=== PATIENT | female | born 1985 | race American Indian/Alaskan Native ===

== ENCOUNTER 2016-11-04 19:30 | Observation (INO) | payer SELFPAY ==
[2016-11-04 19:31] VITALS: BMI 25.6
[2016-11-04 20:53] VITALS: RESP 18
[2016-11-04 21:04] VITALS: O2SAT 100
[2016-11-04] MEDS ORDERED: Sodium Chloride 0.9% 1,000 ML IV STA (21:07)
--- NOTE | 2016-11-04 21:17 | ED PDOC ---
Arrival/HPI - General Chief Complaint: GI Problem Time Seen by Provider: 11/04/16 21:00 Historian: Patient - History of Present Illness Narrative History of Present Illness (Text): 11/04/16 21:13 Connie Kessler is a 31 year old female who presents to the emergency department complaining of nausea and episodes of vomiting for past couple of days. Patient thinks that she might possibly be 5-6 weeks , if so she would be G6, P2, A3. Denies abdominal pain, vaginal discharge. Denies fever, chills, headache, dizziness, diarrhea, urinary symptoms or any other complaints at this time. Time/Duration: < week (couple of days ) Symptom Onset: Gradual Symptom Course: Unchanged Severity Level: Mild Activities at Onset: Light Past Medical History - Provider Review Nursing Documentation Reviewed: Yes - Infectious Disease Hx of Infectious Diseases: None - Tetanus Immunization Tetanus Immunization: Unknown - Past Medical History Past Medical History: No Previous - Neurological Hx Migraine: Yes - Hematological/Oncological Hx Blood Transfusions: No Hx Blood Transfusion Reaction: No - Musculoskeletal/Rheumatological Hx Falls: No - Genitourinary/Gynecological Other/Comment: 3 abortions, one vaginal - Psychiatric Hx Depression: No Hx Emotional Abuse: No Hx Physical Abuse: No Hx Substance Use: No - Past Surgical History Past Surgical History: No Previous - Surgical History Other/Comment: R/T ECTOPIC - Anesthesia Hx Anesthesia: Yes Hx Anesthesia Reactions: No Hx Malignant Hyperthermia: No - Suicidal Assessment Feels Threatened In Home Enviroment: No Family/Social History - Physician Review Nursing Documentation Reviewed: Yes Family/Social History: No Known Family HX Smoking Status: Unknown If Ever Smoked Hx Alcohol Use: No Hx Substance Use: No Substance used: marijuana Amount: 1 Hx Substance Use Treatment: No Allergies/Home Meds Allergies/Adverse Reactions: Allergies No Known Allergies Allergy (Verified 10/23/14 19:20) Review of Systems - Physician Review All systems were reviewed & negative as marked: Yes - Review of Systems Constitutional: Normal Respiratory: Normal. absent: SOB Cardiovascular: Normal. absent: Chest Pain Gastrointestinal: Nausea, Vomiting. absent: Abdominal Pain, Diarrhea Genitourinary Female: Normal Neurological: Normal. absent: Headache, Dizziness Psychiatric: Normal Physical Exam Vital Signs Reviewed: Yes Vital Signs Temp Pulse Resp BP Pulse Ox 11/05/16 03:00 97.9 F 62 18 116/74 100 11/05/16 01:08 67 18 119/79 100 11/04/16 21:04 98.1 F 53 L 18 118/61 100 11/04/16 20:47 98.4 F 54 L 18 118/52 L 98 Temperature: Afebrile Blood Pressure: Normal Pulse: Regular Respiratory Rate: Normal Appearance: Positive for: Well-Appearing, Non-Toxic, Comfortable Pain Distress: None Mental Status: Positive for: Alert and Oriented X 3 - Systems Exam Head: Present: Atraumatic, Normocephalic Pupils: Present: PERRL Extroacular Muscles: Present: EOMI Conjunctiva: Present: Normal Mouth: Present: Moist Mucous Membranes Respiratory/Chest: Present: Clear to Auscultation, Good Air Exchange. No: Respiratory Distress, Accessory Muscle Use Cardiovascular: Present: Regular Rate and Rhythm, Normal S1, S2. No: Murmurs Abdomen: Present: Normal Bowel Sounds. No: Tenderness, Distention, Peritoneal Signs, Rebound, Guarding Neurological: Present: GCS=15, CN II-XII Intact, Speech Normal, Motor Func Grossly Intact, Normal Sensory Function Skin: Present: Warm, Dry, Normal Color. No: Rashes Psychiatric: Present: Alert, Oriented x 3, Normal Insight, Normal Concentration Medical Decision Making ED Course and Treatment: 11/04/16 21:19 Impression: A 31 year old female who presents to the emergency department complaining of nausea and vomiting for past few days. Differential Diagnosis included but are not limited to: Plan: -- Labs -- Labs -- IV fluids -- Urinalysis -- Reassess and disposition Progress Notes: 11/04/16 21:[address] patient on Emergency department observation. - Lab Interpretations I have reviewed the lab results: Yes - Medication Orders Current Medication Orders: Discontinued Medications Sodium Chloride (Sodium Chloride 0.9%) 1,000 mls @ 999 mls/hr IV .Q1H1M STA Stop: 11/04/16 22:07 Last Admin: 11/04/16 22:58 Dose: 999 MLS/HR eMAR Start Stop Document 11/04/16 22:58 EKEOO (Rec: 11/04/16 22:58 EKEOO [facility] [place]- [id number]) Intravenous Solution Start Date 11/04/16 Start Time 22:58 Ondansetron HCl (Zofran Inj) 4 mg IVP ONCE ONE Stop: 11/04/16 21:08 Last Admin: 11/04/16 22:58 Dose: 4 MG IVP Administration Document 11/04/16 22:58 EKEOO (Rec: 11/04/16 22:58 EKEOO [facility] [place]- [id number]) Charges for Administration # of IVP Administrations 1 Potassium Chloride (K-Dur 20 Meq Er Tab) 20 meq PO STAT STA Stop: 11/04/16 23:41 Last Admin: 11/05/16 00:49 Dose: 20 MEQ ED OBSERVATION Discharge: Yes Date of observation admission: 11/04/16 Time of observation admission: :20 - Observation admission statement Patient is being placed in observation because:: nausea and vomiting. - Goals of Observation Goals of observation are:: pending labs and reevaluation - Progress Note Progress Note: 11/04/16 23:40 Patient is resting comfortably without any distress. 11/05/16 03:07 Patient was asymptomatic in the emergency department without a single episode of vomiting. Urine positive for HCG. Patient is stable for discharge. Advised to presents to emergency department for worsening symptoms and follow up with Ob /skull splitter. - Scribe Statement The provider has reviewed the documentation as recorded by the Marshall Wright Provider Attestation: All medical record entries made by the Marshall were at my direction and personally dictated by me. I have reviewed the chart and agree that the record accurately reflects my personal performance of the history, physical exam, medical decision making, and the department course for this patient. I have also personally directed, reviewed, and agree with the discharge instructions and disposition. Disposition/Present on Arrival - Present on Arrival Any Indicators Present on Arrival: No History of DVT/PE: No History of Uncontrolled Diabetes: No Urinary Catheter: No History of Decub. Ulcer: No History Surgical Site Infection Following: None - Disposition Have Diagnosis and Disposition been Completed?: Yes Diagnosis: Vomiting, Hyperemesis gravidarum Disposition: HOME/ ROUTINE Disposition Time: 02:56 Patient Plan: Discharge Condition: GOOD
[2016-11-04 22:58] LABS: HEMATOCRIT 30.4 % (36.0-48.0); MEAN CELL VOLUME 71.7 fL (80.0-105.0); MEAN CORPUSCULAR HEMOGLOBIN 24.3 pg (25.0-35.0); MEAN CORPUSCULAR HGB CONC 33.9 g/dl (31.0-37.0); MEAN PLATELET VOLUME 9.8 fl (7.0-11.0); RED CELL DISTRIBUTION WIDTH 13.3 % (11.5-14.5)
[2016-11-04 23:08] LABS: ALB/GLOB RATIO 1.2 (1.1-1.8); ALKALINE PHOSPHATASE 54 U/L (38-133); ALT/SGPT 17 U/L (7-56); AST/SGOT 21 U/L (15-39); BILIRUBIN,TOTAL 1.2 mg/dL (0.2-1.3); BLOOD UREA NITROGEN 16 mg/dL (7-21); CALCIUM 9.7 mg/dL (8.4-10.5); CARBON DIOXIDE 23 mmol/L (21-33); CHLORIDE 97 mmol/L (98-107); GFR AFRICAN-AMERICAN > 60; GLUCOSE,RANDOM 83 mg/dL (70-110); LIPASE 22 U/L (23-300); POTASSIUM 3.3 mmol/L (3.6-5.0); SODIUM 136 mmol/L (132-148); TOTAL PROTEIN 8.3 g/dL (5.8-8.3)
[2016-11-04] MEDS ORDERED: Potassium Chloride 20 mEq ER Tab PO STA (23:40)
[2016-11-05 02:04] LABS: PH,URINE 6.5 (4.7-8.0); URINE BILIRUBIN SMALL (NEGATIVE); URINE BLOOD TRACE-INTACT (NEGATIVE); URINE GLUCOSE (UA) NEGATIVE (NEGATIVE); URINE KETONE >=80 mg/dL (NEGATIVE); URINE LEUKOCYTE ESTERASE NEGATIVE Leu/uL (NEGATIVE); URINE PROTEIN 100 mg/dL (<30 mg/dL)
[2016-11-05 02:13] LABS: URINE APPEARANCE SL CLOUDY (CLEAR); URINE COLOR YELLOW (YELLOW); URINE RBC 0 - 2 /hpf (0-2); URINE WBC 0 - 2 /hpf (0-6)
[2016-11-05 02:14] LABS: URINE BACTERIA TRACE (NEG)
[2016-11-05 03:13] VITALS: BP 116/74; PULSE 62; TEMP 97.9
== END 2016-11-05 02:49 | disposition home or self-care (01) ==
LOC: ED 19:30 → EROBSV 21:20
PROVIDERS: ADMIT Emergency Medicine; ATTEND Emergency Medicine
DX: O21.0 Mild hyperemesis gravidarum (principal)
CPT/HCPCS: 80053; 81001; 83690; 84703; 85027; 96374; 99284; G0378; J2405; J7040

== ENCOUNTER 2016-12-14 12:58 | Emergency (ER) | payer SELFPAY ==
[2016-12-14 12:58] VITALS: BMI 25.6
[2016-12-14 13:21] VITALS: TEMP 98.6; O2SAT 100
[2016-12-14] MEDS ORDERED: DiphenhydrAMINE 50 mg/ml Inj IVP STA (14:06)
--- NOTE | 2016-12-14 14:38 | ED PDOC ---
Arrival/HPI - General Chief Complaint: Headache Time Seen by Provider: 12/14/16 13:54 Historian: Patient - History of Present Illness Narrative History of Present Illness (Text): 12/14/16 13:59 Connie Kessler is a 31 year old female whose past medical history includes Mirgaine Headaches, presents to the emergency department complaining of a persistent migraine headache. Patient states she has been seen for a headache in October and she reports it hasn't subsided since. She also states she usually takes Excedrin for her Migraines which usually help but Excedrin provides no relief. 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 Patient denies any fever, chills, chest pain, shortness of breath, nausea, vomiting, diarrhea, urinary symptoms, back pain, neck pain, dizziness, or any other complaints. Time/Duration: > month Symptom Onset: Gradual Symptom Course: Unchanged Activities at Onset: Light Context: Home Past Medical History - Provider Review Nursing Documentation Reviewed: Yes - Infectious Disease Hx of Infectious Diseases: None - Tetanus Immunization Tetanus Immunization: Unknown - Reproductive Menopause: No - Past Medical History Past Medical History: No Previous - Cardiac Hx Hypertension: Yes - Neurological Hx Migraine: Yes - Hematological/Oncological Hx Blood Transfusions: No Hx Blood Transfusion Reaction: No - Musculoskeletal/Rheumatological Hx Falls: No - Genitourinary/Gynecological Other/Comment: 3 abortions, one vaginal - Psychiatric Hx Depression: No Hx Emotional Abuse: No Hx Physical Abuse: No Hx Substance Use: No - Past Surgical History Past Surgical History: No Previous - Surgical History Other/Comment: R/T ECTOPIC - Anesthesia Hx Anesthesia: Yes Hx Anesthesia Reactions: No Hx Malignant Hyperthermia: No - Suicidal Assessment Feels Threatened In Home Enviroment: No Family/Social History - Physician Review Nursing Documentation Reviewed: Yes Family/Social History: No Known Family HX Smoking Status: Unknown If Ever Smoked Hx Alcohol Use: No Hx Substance Use: No Substance used: marijuana Amount: 1 Hx Substance Use Treatment: No Allergies/Home Meds Allergies/Adverse Reactions: Allergies No Known Allergies Allergy (Verified 10/23/14 19:20) Home Medications: Home Meds Medication Instructions Recorded Confirmed No Known Home Med 12/14/16 12/14/16 Review of Systems - Physician Review All systems were reviewed & negative as marked: Yes - Review of Systems Constitutional: Normal. absent: Fevers Eyes: Normal. absent: Vision Changes, Photophobia, Eye Pain ENT: Normal. absent: Hearing Changes, Sinus Congestion Respiratory: Normal. absent: SOB, Cough Cardiovascular: Normal. absent: Chest Pain, Palpitations Gastrointestinal: Normal. absent: Abdominal Pain, Diarrhea, Nausea, Vomiting Genitourinary Female: Normal. absent: Dysuria, Frequency, Hematuria, Urine Output Changes Musculoskeletal: Normal. absent: Back Pain, Neck Pain Skin: Normal Neurological: Headache (Migraine Headache). absent: Dizziness Endocrine: Normal Hemo/Lymphatic: Normal Psychiatric: Normal Physical Exam Vital Signs Reviewed: Yes Vital Signs Temp Pulse Resp BP Pulse Ox 12/14/16 15:35 65 65 H 118/76 100 12/14/16 13:17 98.6 F 67 16 121/81 100 Temperature: Afebrile Blood Pressure: Normal Pulse: Regular Respiratory Rate: Normal Appearance: Positive for: Well-Appearing, Non-Toxic, Comfortable Pain Distress: None Mental Status: Positive for: Alert and Oriented X 3 - Systems Exam Head: Present: Atraumatic, Normocephalic Pupils: Present: PERRL Extroacular Muscles: Present: EOMI Conjunctiva: Present: Normal Mouth: Present: Moist Mucous Membranes Neck: Present: Normal Range of Motion Respiratory/Chest: Present: Clear to Auscultation, Good Air Exchange. No: Respiratory Distress, Accessory Muscle Use Cardiovascular: Present: Regular Rate and Rhythm, Normal S1, S2. No: Murmurs Abdomen: Present: Normal Bowel Sounds. No: Tenderness, Distention, Peritoneal Signs Back: Present: Normal Inspection Upper Extremity: Present: Normal Inspection. No: Cyanosis, Edema Lower Extremity: Present: Normal Inspection. No: Edema Neurological: Present: GCS=15, CN II-XII Intact, Speech Normal Skin: Present: Warm, Dry, Normal Color. No: Rashes Psychiatric: Present: Alert, Oriented x 3, Normal Insight, Normal Concentration Medical Decision Making ED Course and Treatment: 12/14/16 13:59 Impression: 31 year old female who presents with right sided migraine headache. Differential Diagnosis include but are not limited to: Migraine Plan: -- Benadryl -- Toradol -- Reglan -- Reassess and disposition Prior Visits: Notes and results from previous visits were reviewed. Patient was last seen in the emergency department on 11/04/16 for nausea and vomiting. Progress Notes: Prior to discharge patient felt much better. No longer having headache after medications. She appears comfortable and in no distress. She would like a work note and feels comfortable going home. She will make sure to follow up with her Neurologist as she has schedule but I also referred her to Dr. Beltrán if she'd like. - Medication Orders Current Medication Orders: Discontinued Medications Diphenhydramine HCl (Benadryl) 25 mg IVP STAT STA Stop: 12/14/16 14:07 Last Admin: 12/14/16 14:33 Dose: 25 mg Ketorolac Tromethamine (Toradol) 30 mg IVP STAT STA Stop: 12/14/16 14:07 Last Admin: 12/14/16 14:33 Dose: 30 mg Metoclopramide HCl (Reglan) 10 mg IVP STAT STA Stop: 12/14/16 14:07 Last Admin: 12/14/16 14:33 Dose: 10 mg - Scribe Statement The provider has reviewed the documentation as recorded by the Marshall Carpio Provider Attestation: All medical record entries made by the Marshall were at my direction and personally dictated by me. I have reviewed the chart and agree that the record accurately reflects my personal performance of the history, physical exam, medical decision making, and the department course for this patient. I have also personally directed, reviewed, and agree with the discharge instructions and disposition. Disposition/Present on Arrival - Present on Arrival Any Indicators Present on Arrival: No History of DVT/PE: No History of Uncontrolled Diabetes: No Urinary Catheter: No History of Decub. Ulcer: No History Surgical Site Infection Following: None - Disposition Have Diagnosis and Disposition been Completed?: Yes Diagnosis: Headache Disposition: HOME/ ROUTINE Disposition Time: 15:35 Patient Plan: Discharge Condition: IMPROVED Discharge Instructions (ExitCare): Acute Headache (DC) Additional Instructions: Ms Kessler, thank you for letting us take care of you today. Your provider was Dr. Lopez. You were treated for Headache. The emergency medical care you received today was directed at your acute symptoms. If you were prescribed any medication, please fill it and take as directed. It may take several days for your symptoms to resolve. Return to the Emergency Department if your symptoms worsen, do not improve, or if you have any other problems. Please contact your doctor or call one of the physicians/clinics you have been referred to that are listed on the Patient Visit Information form that is included in your discharge packet. Bring any paperwork you were given at discharge with you along with any medications you are taking to your follow up visit. Our treatment cannot replace ongoing medical care by a primary care provider (PCP) outside of the emergency department. Thank you for allowing the [facility] team to be part of your care today. If you had an X-Ray or CT scan: A Radiologist will review the ED reading if any change in treatment is needed we will contact you. If you had a blood, urine, or wound culture: It will take several days for the results, if any change in treatment is needed we will contact you. If you had an STI test: It will take 48 hours for the results. Please call after 1 week if you have not heard back. Referrals: [facility], [Non-Staff] - Follow up with primary Tramaine Beltrán MD [Staff Provider] - Follow up with primary Forms: [facility] Visits Discharge (Tongan), WORK NOTE
[2016-12-14 16:37] VITALS: BP 118/76; PULSE 65; RESP 65
== END 2016-12-14 15:35 | disposition home or self-care (01) ==
LOC: ED 12:58
DX: R51 Headache (principal); I10 Essential (primary) hypertension
CPT/HCPCS: 96374; 96375; 99285; J1200; J1885; J2765

== ENCOUNTER 2017-02-03 14:05 | Emergency (ER) | payer SELFPAY ==
[2017-02-03 14:08] VITALS: BMI 25.4
[2017-02-03 14:11] VITALS: TEMP 98.6; O2SAT 99
[2017-02-03] MEDS ORDERED: Sodium Chloride 0.9% 1,000 ML IV STA (15:13)
--- NOTE | 2017-02-03 16:09 | ED PDOC ---
Arrival/HPI - General Chief Complaint: Headache Time Seen by Provider: 02/03/17 14:12 Historian: Patient - History of Present Illness Narrative History of Present Illness (Text): 02/03/17 16:02 32yr old female presents today with 2 day history of frontal headache. pt states she has hx of migranes and "fluid on the brain" that she was supposed to f/u with neurosurgeon for drainage but never did because she was afraid. pt states she has been having about 2 headaches a month since she was 16yrs old. pt states headache is the same as usual, throbbing, frontal, non radiating. pt states occasionally she can treat her headaches with excedrin but sometimes she needs to come to the ER and gets medications though IV. pt states after she gets the medications here the patient seems to help with the headaches for a month or so. pt denies dizziness or weakness. no fever/chills. no cp or sob. no vomiting. + nausea. pt states she had 12/08/16. states she is currently menstrating. Time/Duration: Other (2 days) Symptom Onset: Gradual Symptom Course: Unchanged Quality: Aching, Throbbing Severity Level: 6 Past Medical History - Provider Review Nursing Documentation Reviewed: Yes - Travel History Have you recently traveled outside [place] w/in the past 3 mons?: No - Infectious Disease Hx of Infectious Diseases: None - Tetanus Immunization Tetanus Immunization: Unknown - Cardiac Hx Hypertension: Yes - Neurological Hx Migraine: Yes Other/Comment: hx of brain cyst - Hematological/Oncological Hx Blood Transfusions: No Hx Blood Transfusion Reaction: No - Musculoskeletal/Rheumatological Hx Falls: No - Genitourinary/Gynecological Other/Comment: 3 abortions, one vaginal . h/o ectopic - Psychiatric Hx Depression: No Hx Emotional Abuse: No Hx Physical Abuse: No Hx Substance Use: No - Past Surgical History Past Surgical History: No Previous - Surgical History Other/Comment: R/T ECTOPIC - Anesthesia Hx Anesthesia: Yes Hx Anesthesia Reactions: No Hx Malignant Hyperthermia: No - Suicidal Assessment Feels Threatened In Home Enviroment: No Family/Social History - Physician Review Nursing Documentation Reviewed: Yes Family/Social History: Unknown Family HX Smoking Status: Light Smoker < 10 Cigarettes Daily Hx Alcohol Use: Yes Frequency of alcohol use: Socially Hx Substance Use: No Substance used: marijuana Amount: 1 Hx Substance Use Treatment: No Allergies/Home Meds Allergies/Adverse Reactions: Allergies No Known Allergies Allergy (Verified 10/23/14 19:20) Review of Systems - Review of Systems Constitutional: absent: Fatigue, Fevers Eyes: Photophobia. absent: Eye Pain Respiratory: absent: SOB, Cough Cardiovascular: absent: Chest Pain Gastrointestinal: Nausea. absent: Abdominal Pain, Vomiting Genitourinary Female: absent: Dysuria Musculoskeletal: absent: Arthralgias, Back Pain, Neck Pain Skin: absent: Rash, Pruritis Neurological: Headache. absent: Dizziness, Focal Weakness, Gait Changes, Speech Changes, Facial Droop, Disequilibrium, Seizure Psychiatric: absent: Anxiety, Depression Physical Exam Vital Signs Reviewed: Yes Vital Signs Temp Pulse Resp BP Pulse Ox 02/03/17 14:10 98.6 F 76 18 105/68 99 Temperature: Afebrile Blood Pressure: Normal Pulse: Regular Respiratory Rate: Normal Appearance: Positive for: Well-Appearing, Non-Toxic, Comfortable Pain Distress: None Mental Status: Positive for: Alert and Oriented X 3 - Systems Exam Head: Present: Atraumatic Pupils: Present: PERRL Extroacular Muscles: Present: EOMI Conjunctiva: Present: Normal Ears: Present: Normal, NORMAL TM Mouth: Present: Moist Mucous Membranes Nose (Internal): Present: Normal Inspection Neck: Present: Normal Range of Motion, Trachea Midline. No: MIDLINE TENDERNESS , Paraspinal Tenderness Respiratory/Chest: Present: Clear to Auscultation, Good Air Exchange. No: Respiratory Distress, Accessory Muscle Use Cardiovascular: Present: Regular Rate and Rhythm, Normal S1, S2. No: Murmurs Abdomen: No: Tenderness Upper Extremity: Present: Normal ROM Lower Extremity: Present: Normal ROM Neurological: Present: GCS=15, Speech Normal, Motor Func Grossly Intact, Normal Sensory Function, Gait Normal Skin: Present: Warm, Dry, Normal Color. No: Rashes Psychiatric: Present: Alert, Oriented x 3 Medical Decision Making ED Course and Treatment: 02/03/17 16:14 32yr old female with long standing hx of headaches. pt had ct in 2013; which showed cystic structure. pt refused repeat ct. toradol, reglan, NS Iv bolus given pt reassessment; feeling better; headache resolved. will d/c home to f/u with neurologist; stressed importance of f/u. stressed my concerns for need for imaging to check on the size of the brain lesion. pt states she will f/u. advised patient that if lesion enlarges to much it can lead to seizures and even . Patient verbalizes understanding of discharge instructions and need for immediate followup. impression; headache motrin every 6 hours as needed for pain follow up with the neurologist within the next 2 days follow up with the primary care physician within the next 2 days. return immediately if symptoms worsen,persist or if new symptoms develop. 02/03/17 17:14 - Medication Orders Current Medication Orders: Discontinued Medications Sodium Chloride (Sodium Chloride 0.9%) 1,000 mls @ 999 mls/hr IV .Q1H1M STA Stop: 02/03/17 16:13 Ketorolac Tromethamine (Toradol) 30 mg IVP STAT STA Stop: 02/03/17 15:14 Metoclopramide HCl (Reglan) 10 mg IVP STAT STA Stop: 02/03/17 15:14 Disposition/Present on Arrival - Present on Arrival Any Indicators Present on Arrival: No History of DVT/PE: No History of Uncontrolled Diabetes: No Urinary Catheter: No History of Decub. Ulcer: No History Surgical Site Infection Following: None - Disposition Have Diagnosis and Disposition been Completed?: Yes Diagnosis: Headache Disposition: HOME/ ROUTINE Disposition Time: 17:00 Patient Plan: Discharge Condition: GOOD Discharge Instructions (ExitCare): General Headache (ED) Additional Instructions: motrin every 6 hours as needed for pain follow up with the neurologist within the next 2 days follow up with the primary care physician within the next 2 days. return immediately if symptoms worsen,persist or if new symptoms develop. Prescriptions: Ibuprofen [Motrin] 600 mg PO Q6H PRN #20 tab PRN Reason: pain/fever reduction Referrals: Tramaine Beltrán MD [Staff Provider] - Follow up with primary Levon Wynne MD [Staff Provider] - Follow up with primary Forms: WORK NOTE
[2017-02-03 17:36] VITALS: BP 110/70; PULSE 70; RESP 16
== END 2017-02-03 17:35 | disposition home or self-care (01) ==
LOC: ED 14:05
DX: R51 Headache (principal); I10 Essential (primary) hypertension; Z72.0 Tobacco use
CPT/HCPCS: 96361; 96374; 96375; 99285; J1885; J2765; J7040

== ENCOUNTER 2017-02-23 16:36 | Emergency (ER) | payer SELFPAY ==
[2017-02-23 16:43] VITALS: O2SAT 99; BMI 25.7
[2017-02-23] MEDS ORDERED: Sodium Chloride 0.9% 1,000 ML IV STA (17:15)
--- NOTE | 2017-02-23 17:24 | ED PDOC ---
Arrival/HPI - General Chief Complaint: Abdominal Pain Time Seen by Provider: 02/23/17 16:38 Historian: Patient - History of Present Illness Narrative History of Present Illness (Text): 02/23/17 17:19 Patient complains of 2 day history of nausea, vomiting and diarrhea with no abdominal pain, symptoms started after eating "bad shrimp" yesterday morning. Otherwise: (-) recent travel, (-) sick contacts (-) fever, (-) urinary symptoms , (-) melena, (-) hematochezia. Has no history of prior abdominal surgery. Past Medical History - Provider Review Nursing Documentation Reviewed: Yes - Infectious Disease Hx of Infectious Diseases: None - Tetanus Immunization Tetanus Immunization: Unknown - Past Medical History Past Medical History: No Previous - Cardiac Hx Hypertension: Yes - Neurological Hx Migraine: Yes Other/Comment: hx of brain cyst - Hematological/Oncological Hx Blood Transfusions: No Hx Blood Transfusion Reaction: No - Musculoskeletal/Rheumatological Hx Falls: No - Genitourinary/Gynecological Other/Comment: 3 abortions, one vaginal . h/o ectopic - Psychiatric Hx Depression: No Hx Emotional Abuse: No Hx Physical Abuse: No Hx Substance Use: No - Past Surgical History Past Surgical History: No Previous - Surgical History Other/Comment: R/T ECTOPIC - Anesthesia Hx Anesthesia: Yes Hx Anesthesia Reactions: No Hx Malignant Hyperthermia: No - Suicidal Assessment Feels Threatened In Home Enviroment: No Family/Social History - Physician Review Nursing Documentation Reviewed: Yes Family/Social History: No Known Family HX Smoking Status: Light Smoker < 10 Cigarettes Daily Hx Alcohol Use: Yes Frequency of alcohol use: Socially Hx Substance Use: No Substance used: Hx of marijuana Amount: 1 Hx Substance Use Treatment: No Allergies/Home Meds Allergies/Adverse Reactions: Allergies No Known Allergies Allergy (Verified 02/23/17 16:43) Review of Systems - Review of Systems Constitutional: Normal. absent: Fatigue, Weight Change, Fevers Respiratory: Normal. absent: SOB, Cough, Sputum Cardiovascular: Normal. absent: Chest Pain, Palpitations, Edema Gastrointestinal: Normal, Abdominal Pain, Diarrhea, Vomiting. absent: Stool Changes, Appetite Changes Musculoskeletal: Normal. absent: Arthralgias, Back Pain, Neck Pain Skin: Normal. absent: Rash, Pruritis, Skin Lesions Physical Exam - Physical Exam Narrative Physical Exam (Text): 02/23/17 17:20 GENERAL APPEARANCE: Patient is awake, alert, oriented x 3, in no acute distress. SKIN: Warm, dry; (-) cyanosis. EYES: (-) conjunctival pallor, (-) scleral icterus. ENMT: Mucous membranes dry. NECK: (-) tenderness, (-) stiffness, (-) lymphadenopathy. CHEST AND RESPIRATORY: (-) rales, (-) rhonchi, (-) wheezes; breath sounds equal bilaterally. HEART AND CARDIOVASCULAR: (-) irregularity; (-) murmur, (-) gallop. ABDOMEN AND GI: (-) distention. Bowel sounds active; (-) tenderness, (-) guarding, (-) rebound, (-) palpable masses, (-) CVA tenderness. EXTREMITIES: (-) deformity, (-) edema, (+) distal pulses. NEURO AND PSYCH: Mental status as above; (-) focal findings. Vital Signs Temp Pulse Resp BP Pulse Ox 02/23/17 18:29 98.6 F 73 20 123/56 L 99 02/23/17 16:39 99.2 F 71 18 121/78 99 Medical Decision Making ED Course and Treatment: 02/23/17 17:24 32 yo F complaining of 2 day history of nausea, vomiting and diarrhea with no abdominal pain. Based on history and exam, likely viral gastroenteritis, consider gastritis, or colitis. Plan: - Labs - IV - NS bolus - Pepcid IV / zofran IV - [facility] [place] 02/23/17 18:08 [facility] [place] (-). Lab results reviewed. Pt noted to have a K of 3.2, KCL 40 mEq PO ordered. On re-evaluation, patient is resting in bed comfortably in no acute distress. Reports no nausea and no abdominal pain at this time. Had no episodes of vomiting or diarrhea while in the emergency room. Abdomen remains soft and non-tender with no guarding and no rebound. Patient instructed to drink plenty of fluids, BRAT diet, increase intake in K rich foods such as bananas. Rx provided for zofran, pepcid and KCl. Advised to follow up with the clinic in 1-2 days without fail. Advised to take medication as prescribed. Return to the emergency room at any time for any new or worsening symptoms. Patient states she fully agrees with and understands discharge instructions. States that she agrees with the plan and disposition. Verbalized and repeated discharge instructions and plan. I have given the patient opportunity to ask any additional questions. - Lab Interpretations Lab Results: 02/23/17 17:20 02/23/17 17:20 Lab Results 02/23/17 17:20: Sodium 139, Potassium 3.2 L, Chloride 104, Carbon Dioxide 24, Anion Gap 14, BUN 15, Creatinine 0.8, Est GFR ( Amer) > 60, Est GFR (Non- Af Amer) > 60, Random Glucose 91, Calcium 8.8, Total Bilirubin 1.1, AST 16, ALT 18, Alkaline Phosphatase 52, Total Protein 7.2, Albumin 4.1, Globulin 3.2, Albumin/Globulin Ratio 1.3, Lipase 60 02/23/17 17:20: WBC 6.1 D, RBC 4.29, Hgb 10.7 L, Hct 31.8 L, MCV 74.1 L, MCH 24.9 L, MCHC 33.6, RDW 13.5, Plt Count 209, MPV 9.6, Gran % 39.0 L, Lymph % ( Auto) 48.9 H, Valley % (Auto) 8.8 H, Eos % (Auto) 2.5, Baso % (Auto) 0.8, Gran # 2.39, Lymph # 3.0, Valley # 0.5, Eos # 0.2, Baso # 0.05 I have reviewed the lab results: Yes (hgb 10.7 / hct 31.8 / k 3.2) - Medication Orders Current Medication Orders: Discontinued Medications Famotidine (Pepcid) 20 mg IVP STAT STA Stop: 02/23/17 17:16 Last Admin: 02/23/17 17:28 Dose: 20 mg Sodium Chloride (Sodium Chloride 0.9%) 1,000 mls @ 1,000 mls/hr IV .Q1H STA Stop: 02/23/17 18:14 Last Admin: 02/23/17 17:23 Dose: 1,000 mls/hr Ondansetron HCl (Zofran Inj) 4 mg IVP STAT STA Stop: 02/23/17 17:16 Last Admin: 02/23/17 17:28 Dose: 4 mg Potassium Chloride (Potassium Chloride Oral Soln) 40 meq PO STAT STA Stop: 07/09/17 18:00 Last Admin: 02/23/17 18:10 Dose: 40 meq - PA / COOLING ROOM ATTENDANT / Resident Statement MD/DO has reviewed & agrees with the documentation as recorded. Disposition/Present on Arrival - Present on Arrival Any Indicators Present on Arrival: No History of DVT/PE: No History of Uncontrolled Diabetes: No Urinary Catheter: No History of Decub. Ulcer: No History Surgical Site Infection Following: None - Disposition Have Diagnosis and Disposition been Completed?: Yes Diagnosis: Gastroenteritis Disposition: HOME/ ROUTINE Disposition Time: 18:00 Patient Plan: Discharge Patient Problems: Current Active Problems Problem Status Onset Gastroenteritis Acute Condition: IMPROVED Discharge Instructions (ExitCare): Gastroenteritis (ED) Print Language: ITALIAN Additional Instructions: Thank you for letting us take care of you today. You were treated for gastroenteritis. The emergency medical care you received today was directed at your acute symptoms. If you were prescribed any medication, please fill it and take as directed. It may take several days for your symptoms to resolve. Return to the Emergency Department if your symptoms worsen, do not improve, or if you have any other problems. Please contact the clinic in 2 days for re-evaluation and follow up. Bring any paperwork you were given at discharge with you along with any medications you are taking to your follow up visit. Our treatment cannot replace ongoing medical care by a primary care provider (PCP) outside of the emergency department. Thank you for allowing the [facility] team to be part of your care today. Prescriptions: Famotidine [Pepcid] 40 mg PO DAILY #20 tablet Ondansetron ODT [Zofran ODT] 4 mg PO DAILY PRN #20 odt PRN Reason: Nausea/Vomiting Referrals: [facility] [place] [Outside] - Follow up with primary PCP,NO [Primary Care Provider] - Follow up with primary Forms: WORK NOTE
[2017-02-23 17:33] LABS: BASO # 0.05 K/mm3 (0.0-2.0); BASO % 0.8 % (0.0-3.0); EOS # 0.2 (0.0-0.7); EOS % 2.5 % (1.5-5.0); GRAN # 2.39 (1.4-6.5); HEMOGLOBIN 10.7 gm/dL (12.0-16.0); LYMPH % 48.9 % (22.0-35.0); MEAN CELL VOLUME 74.1 fL (80.0-105.0); MEAN CORPUSCULAR HEMOGLOBIN 24.9 pg (25.0-35.0); MEAN CORPUSCULAR HGB CONC 33.6 g/dl (31.0-37.0); MEAN PLATELET VOLUME 9.6 fl (7.0-11.0); MONO # 0.5 (0.1-0.6); MONO % 8.8 % (1.0-6.0); PLATELET COUNT 209 10^3/uL (120.0-450.0); RBC 4.29 10^6/uL (3.5-6.1); RED CELL DISTRIBUTION WIDTH 13.5 % (11.5-14.5); WHITE BLOOD COUNT 6.1 10^3/ul (4.5-11.0)
[2017-02-23 17:52] LABS: ALB/GLOB RATIO 1.3 (1.1-1.8); ALBUMIN 4.1 g/dL (3.0-4.8); ALT/SGPT 18 U/L (7-56); AST/SGOT 16 U/L (15-39); BLOOD UREA NITROGEN 15 mg/dL (7-21); CALCIUM 8.8 mg/dL (8.4-10.5); GFR AFRICAN-AMERICAN > 60; GFR NON-AFRICAN AMERICAN > 60; LIPASE 60 U/L (23-300)
[2017-02-23] MEDS ORDERED: Potassium Chloride 20 mEq/15 ml LIQ UD PO STA (17:59)
[2017-02-23 18:29] VITALS: BP 123/56; PULSE 73; RESP 20; TEMP 98.6
== END 2017-02-23 18:31 | disposition home or self-care (01) ==
LOC: ED 16:36
DX: K52.9 Noninfective gastroenteritis and colitis, unspecified (principal)
CPT/HCPCS: 80053; 83690; 85025; 96361; 96374; 96375; 99281; J2405; J7040

== ENCOUNTER 2017-03-09 01:19 | Emergency (ER) | payer SELFPAY ==
[2017-03-09 01:25] VITALS: TEMP 97.5; O2SAT 100; BMI 25.0
[2017-03-09] MEDS ORDERED: Sodium Chloride 0.9% 1,000 ML IV SCH (01:45)
--- NOTE | 2017-03-09 02:06 | ED PDOC ---
Arrival/HPI - General Chief Complaint: Headache Time Seen by Provider: 03/09/17 01:31 Historian: Patient - History of Present Illness Narrative History of Present Illness (Text): 03/09/17 01:35 32 year old female, whose past medical history includes hypertension and migraines, who presents to the emergency department complaining of headache and nausea prior to arrival. Patient reports symptoms are consistent with previous migraine episodes and states she has not taken medications at home. Patient denies fevers, chills, vomiting, diarrhea, abdominal pain, chest pain, shortness of breath, cough, dizziness, or any other complaints. Time/Duration: Other (tonight) Symptom Onset: Gradual Symptom Course: Unchanged Activities at Onset: Rest, Light Context: Home Past Medical History - Provider Review Nursing Documentation Reviewed: Yes - Infectious Disease Hx of Infectious Diseases: None - Tetanus Immunization Tetanus Immunization: Unknown - Past Medical History Past Medical History: No Previous - Cardiac Hx Hypertension: Yes - Pulmonary Hx Respiratory Disorders: No - Neurological Hx Migraine: Yes Other/Comment: hx of brain cyst - HEENT Hx HEENT Disorder: No - Renal Hx Renal Disorder: No - Endocrine/Metabolic Hx Endocrine Disorders: No - Hematological/Oncological Hx Blood Transfusions: No Hx Blood Transfusion Reaction: No - Integumentary Hx Dermatological Disorder: No - Musculoskeletal/Rheumatological Hx Falls: No - Gastrointestinal Hx Gastrointestinal Disorders: No - Genitourinary/Gynecological Hx Genitourinary Disorders: Yes Other/Comment: 3 abortions, one vaginal . h/o ectopic - Psychiatric Hx Depression: No Hx Emotional Abuse: No Hx Physical Abuse: No Hx Substance Use: No - Past Surgical History Past Surgical History: No Previous - Surgical History Other/Comment: R/T ECTOPIC - Anesthesia Hx Anesthesia: Yes Hx Anesthesia Reactions: No Hx Malignant Hyperthermia: No - Suicidal Assessment Feels Threatened In Home Enviroment: No Family/Social History - Physician Review Nursing Documentation Reviewed: Yes Family/Social History: No Known Family HX Smoking Status: Light Smoker < 10 Cigarettes Daily Hx Alcohol Use: Yes Hx Substance Use: No Substance used: Hx of marijuana Amount: 1 Hx Substance Use Treatment: No Allergies/Home Meds Allergies/Adverse Reactions: Allergies No Known Allergies Allergy (Verified 03/09/17 01:25) Review of Systems - Physician Review All systems were reviewed & negative as marked: Yes - Review of Systems Constitutional: Normal. absent: Fevers, Night Sweats Eyes: Normal. absent: Vision Changes, Photophobia ENT: Normal Respiratory: Normal. absent: SOB, Cough Cardiovascular: Normal. absent: Chest Pain Gastrointestinal: Nausea. absent: Abdominal Pain, Diarrhea, Vomiting Genitourinary Female: Normal Musculoskeletal: Normal Skin: Normal Neurological: Headache. absent: Dizziness Physical Exam Vital Signs Reviewed: Yes Vital Signs Temp Pulse Resp BP Pulse Ox 03/09/17 06:01 63 18 136/89 100 03/09/17 03:10 63 18 140/92 H 100 03/09/17 01:25 97.5 F L 79 21 126/67 100 03/09/17 01:24 97.5 F L 79 21 126/67 100 Temperature: Afebrile Blood Pressure: Normal Pulse: Regular Respiratory Rate: Normal Appearance: Positive for: Well-Appearing, Non-Toxic Pain Distress: None Mental Status: Positive for: Alert and Oriented X 3 - Systems Exam Head: Present: Atraumatic, Normocephalic Pupils: Present: PERRL Extroacular Muscles: Present: EOMI Conjunctiva: Present: Normal Mouth: Present: Moist Mucous Membranes Neck: Present: Normal Range of Motion Respiratory/Chest: Present: Clear to Auscultation, Good Air Exchange. No: Respiratory Distress, Accessory Muscle Use Cardiovascular: Present: Regular Rate and Rhythm, Normal S1, S2. No: Murmurs Abdomen: Present: Normal Bowel Sounds. No: Tenderness, Distention, Peritoneal Signs Back: Present: Normal Inspection Upper Extremity: Present: Normal Inspection. No: Cyanosis, Edema Lower Extremity: Present: Normal Inspection. No: Edema Neurological: Present: GCS=15, CN II-XII Intact, Speech Normal, Motor Func Grossly Intact, Normal Sensory Function, Normal Cerebellar Funct Skin: Present: Warm, Dry, Normal Color. No: Rashes Psychiatric: Present: Alert, Oriented x 3, Normal Insight, Normal Concentration Medical Decision Making ED Course and Treatment: 03/09/17 01:40 Impression: 32 year old female with headache and nausea. Normal physical exam. Plan: -- Relgan -- IV Fluids -- Reassess and disposition Prior Visits: Notes and results from previous visits were reviewed. Patient was last seen in the emergency department on 02/23/2017 complaining of 2 day history of nausea, vomiting and diarrhea with no abdominal pain. Patient was discharged home. Progress Notes: 03/09/17 05:57 On re-evaluation, patient feels better and is in no acute distress. I have discussed the results and plan with the patient, who expresses understanding. Patient in agreement with plan to be discharged home. Patient is stable for discharge. Patient was instructed to follow up with physician or return if symptoms worsen or new concerning symptoms arise. Re-evaluation Time: 05:57 Reassessment Condition: Re-examined, Improved - Medication Orders Current Medication Orders: Sodium Chloride (Sodium Chloride 0.9%) 1,000 mls @ 80 mls/hr IV .[id number] Last Admin: 03/09/17 01:52 Dose: 80 mls/hr Discontinued Medications Dexamethasone (Decadron Inj) 10 mg IVP STAT STA Stop: 03/09/17 02:48 Last Admin: 03/09/17 03:00 Dose: 10 mg Ketorolac Tromethamine (Toradol) 30 mg IVP ONCE ONE Stop: 03/09/17 02:47 Last Admin: 03/09/17 03:03 Dose: 30 mg Metoclopramide HCl (Reglan) 10 mg IVP ONCE ONE Stop: 03/09/17 01:42 Last Admin: 03/09/17 01:52 Dose: 10 mg Ondansetron HCl (Zofran Inj) 4 mg IVP STAT STA Stop: 03/09/17 02:59 Last Admin: 03/09/17 03:05 Dose: 4 mg - Yeyoibe Statement The provider has reviewed the documentation as recorded by the Marshall [employer] training under Jerri Moon. Provider Attestation: All medical record entries made by the Marshall were at my direction and personally dictated by me. I have reviewed the chart and agree that the record accurately reflects my personal performance of the history, physical exam, medical decision making, and the department course for this patient. I have also personally directed, reviewed, and agree with the discharge instructions and disposition. Disposition/Present on Arrival - Present on Arrival Any Indicators Present on Arrival: No History of DVT/PE: No History of Uncontrolled Diabetes: No Urinary Catheter: No History of Decub. Ulcer: No History Surgical Site Infection Following: None - Disposition Have Diagnosis and Disposition been Completed?: Yes Diagnosis: Migraine Disposition: HOME/ ROUTINE Disposition Time: 05:57 Condition: GOOD Discharge Instructions (ExitCare): Migraine Headache (ED) Prescriptions: Acetaminophen/Butalbital/Caf [Fioricet] 1 tab PO QID #8 tab Forms: WORK NOTE
[2017-03-09 03:11] VITALS: PULSE 63; RESP 18
[2017-03-09 06:02] VITALS: BP 136/89
== END 2017-03-09 06:05 | disposition home or self-care (01) ==
LOC: ED 01:19
DX: G43.909 Migraine, unspecified, not intractable, without status migrainosus (principal)
CPT/HCPCS: 96374; 96375; 99285; J1100; J1885; J2405; J2765; J7040